=== PATIENT | male | born 1985 | race African-American/Black ===

== ENCOUNTER 2018-04-20 19:00 | Emergency (ER) | payer SELFPAY ==
--- NOTE | 2018-04-20 19:14 | PDOC ---
Rapid Medical Evaluation Chief Complaint: Non EmpBld/Body Flud Exposure Time Seen by Provider: 04/20/18 19:11 Medical Evaluation: Allergies Allergy/AdvReac Type Severity Reaction Status Date / Time No Known Allergies Allergy Verified 02/04/18 12:28 04/20/18 19:12 I have performed a brief in person evaluation of this patient. The patient presents with a CC of: "I want HIV testing." HPI: Pt is a 32 YO male who is here for a HIV test as he came in contact with a HIV+ female four weeks ago. PE: Skin: Clear Heart: RRR Lungs: Clear MS: Moves all extremities without difficulty Neuro: Appropriate affect Psych: appropriate affect I have ordered: HIV test The patient will proceed to the ED for further evaluation. Discharge Disposition - Referrals - Patient Instructions - Post Discharge Activity Work/School Note: Back to Work
[2018-04-20 19:22] VITALS: BP 133/74; PULSE 94; TEMP 98.3; BMI 31.9
--- NOTE | 2018-04-20 20:20 | PDOC ---
History of Present Illness - General Chief Complaint: Non EmpBld/Body Flud Exposure Stated Complaint: TESTING Time Seen by Provider: 04/20/18 19:11 - History of Present Illness Initial Comments: 32-year-old male without comorbidities presents for evaluation requesting HIV and hepatitis testing. States he was involved in unprotected sex with a HIV positive partner 6 weeks ago. He has no symptoms 04/20/18 20:19 Past History - Past Medical History Allergies/Adverse Reactions: Allergies Allergy/AdvReac Type Severity Reaction Status Date / Time No Known Allergies Allergy Verified 04/20/18 19:12 Home Medications: Ambulatory Orders NK [No Known Home Medication] 02/04/18 COPD: No - Suicide/Smoking/Psychosocial Hx Smoking Status: Yes Smoking History: Unknown if ever smoked Have you smoked in the past 12 months: Yes Number of Cigarettes Smoked Daily: 2 If you are a former smoker, when did you quit?: 2012 Information on smoking cessation initiated: No Hx Alcohol Use: No Drug/Substance Use Hx: No Substance Use Type: None Review of Systems - Review of Systems All Other Systems: Reviewed and Negative *Physical Exam - Vital Signs Last Vital Signs Temp Pulse Resp BP Pulse Ox 98.3 F 94 H 16 133/74 98 04/20/18 19:12 04/20/18 19:12 04/20/18 19:12 04/20/18 19:12 04/20/18 19:12 - Physical Exam Comments: HEAD: NC/AT EYES: Conjuntiva clear Ears: Canals and TM's normal NOSE: No d/c THROAT: Moist mucous membrances, oral pharanx clear, uvula midline NECK: Supple without adenopathy CARDIAC: S1 S2 LUNGS: CTA Full and Equal breath sounds ABDOMEN: Soft NT ND MS: Full ROM in all joints without edema NEUROLOGIC: No gross sensory or motor deficits, NVID SKIN: Normal color and temperature no lesions or rashes 04/20/18 20:20 ED Treatment Course - LABORATORY CBC & Chemistry Diagram: 04/20/18 20:47 04/20/18 20:47 *DC/Admit/Observation/Transfer Diagnosis at time of Disposition: STD exposure - Discharge Dispostion Disposition: HOME Condition at time of disposition: Stable Decision to Admit order: No - Referrals Referrals: Lukas Washington MD [Staff Physician] - Anthony Medina MD [Staff Physician] - Suzanne Duncan MD [Staff Physician] - - Patient Instructions Printed Discharge Instructions: Chlamydia: The Silent STD, How to Detect and Treat STDs, Facts About Sexually Transmitted Infections Additional Instructions: Return to the emergency room should her symptoms worsen or go unresolved. Please follow-up with the primary care physician I recommended for you in one to 2 days for further evaluation and treatment options. - Post Discharge Activity Forms/Work/School Notes: Back to Work
[2018-04-20 20:59] LABS: BASO % 0.9 % (0-2.0); EOS % 3.4 % (0-4.5); LYMPH % 29.6 % (8-40); MCH 31.3 pg (25.7-33.7); MCHC 33.3 g/dl (32.0-35.9); MEAN CELL VOLUME 94.2 fl (80-96); MEAN PLT VOLUME 7.7 fl (7.5-11.1); MONO % 12.6 % (3.8-10.2); NEUT % 53.5 % (42.8-82.8); PLATELET COUNT 222 K/MM3 (134-434); RBC 4.46 M/mm3 (4.00-5.60); RDW 13.5 % (11.9-15.9); WHITE BLOOD COUNT 6.1 K/mm3 (4.0-10.0)
[2018-04-20 21:31] LABS: ANION GAP 9 MMOL/L (8-16); BILIRUBIN,TOTAL 0.2 mg/dL (0.2-1); BLOOD UREA NITROGEN 17 mg/dL (7-18); CHLORIDE 106 mmol/L (98-107); CO2 24 mmol/L (21-32); GLUCOSE,RANDOM 97 mg/dL (74-106); POTASSIUM 4.2 mmol/L (3.5-5.1); SGOT/AST 25 U/L (15-37); SGPT/ALT 38 U/L (13-61); SODIUM 139 mmol/L (136-145); TOT PROT 6.8 g/dl (6.4-8.2)
[2018-04-20 21:32] LABS: ALK PHOS 69 U/L (45-117)
[2018-04-20 21:39] LABS: CALCIUM 8.9 mg/dL (8.5-10.1)
[2018-04-22 06:05] LABS: HBsAG SCREEN Negative (Negative)
== END 2018-04-20 22:38 | disposition home or self-care (01) ==
LOC: JERFT 19:00
DX: Z20.6 Contact with and (suspected) exposure to human immunodeficiency virus [HIV] (principal)
CPT/HCPCS: 36415; 80053; 85025; 86317; 86706; 86803; 87340; 87389; 99281-25